=== PATIENT | female | born 1995 | race African-American/Black ===

== ENCOUNTER 2016-11-25 21:56 | Emergency (ER) | payer BC, OTHER ==
[~2016-11-25] VITALS: Ht 170.2 cm; Wt 70.3 kg
[~2016-11-25 21:56] MED LIST: CIPROFLOXACIN500 M2 ORAL; DIPHENHYDRAMINE25 M1 ORAL; DOXYCYCLINE MO100 MG ORAL; HYDROCODON-ACE1 EA15 ORAL; HYDROCORTISON28.4 G5 RC; IBUPROFEN600 MG ORAL; KEFLEX500 MG ORAL; LEVOFLOXACIN750 MG ORAL; NKM; PHENAZOPYRIDIN100 MG ORAL; ZOFRAN4 MG ORAL
[2016-11-25] MEDS ORDERED: Morphine Sulfate 4mg/ml Inj IVP ONE ×2 (22:15→23:15)
[2016-11-25] MEDS ORDERED: Famotidine 20 MG/ 2ML VIAL IVP ONE (22:15)
--- NOTE | 2016-11-25 22:21 | Emergency Room Report ---
History of Present Illness General Chief Complaint: Abdominal Pain Source: Patient Present Illness HPI The patient presents with epigastric pain that began the morning. This been constant and all day. She states it's sharp and burning. It's / and does not radiate to her back. She has history of pancreatitis in the past. This feels similar to that. She's not been vomiting coffee grounds or blood. She also denies any melena or diarrhea. She denies any fevers or chills. She is unable to keep down pain medication at home. Last period was October 29. Normal for her she doesn't believe she is . She denies any dysuria. No cough, sore throat, chest pain, palpitations or dizziness. Denies any joint pain. She did drink 2 glasses of wine yesterday. 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 Last Menstrual Period: 11/04/16 Now: No Reviewed Nursing Documentation: PMH: Agreed, PSxH: Agreed Nursing Documentation-PMH Past Medical History: No History, Except For Hx Cardiac Problems: No Hx Cancer: No Hx Gastrointestinal Problems: Yes - SBO 09/03 Hx Neurological Problems: No Review of Systems All Other Systems: negative except mentioned in HPI Physical Exam Vital Signs Date Time Temp Pulse Resp B/P Pulse Ox O2 Delivery O2 Flow Rate FiO2 11/25/16 22:03 98.2 82 14 104/72 99 Room Air Sp02 EP Interpretation: reviewed, normal General Appearance: well appearing, no apparent distress, GCS 15 Head: normocephalic Eyes: bilateral eye PERRL, bilateral eye anticteric, bilateral eye normal inspection ENT: moist mucus membranes Neck: supple Respiratory: lungs clear, normal breath sounds Cardiovascular #1: regular rate, rhythm Cardiovascular #2: 2+ radial (R) Gastrointestinal: normal inspection, normal bowel sounds, no mass, non- distended, no rebound, tenderness - epigastric Musculoskeletal: back normal, gait/station normal, normal range of motion Neurologic: alert, oriented x3, grossly normal Psychiatric: mood/affect normal Skin: normal inspection, warm/dry Medical Decision Making Diagnostic Impression: Primary Impression: Abdominal pain Qualified Codes: R10.13 - Epigastric pain Additional Impression: Gastritis Qualified Codes: K29.00 - Acute gastritis without bleeding ER Course Patient presents with epigastric pain severe at this time. Differential includes gastritis, GERD, pancreatitis, cholecystitis. Evaluation is urgent with labs. In addition she'll be treated with IV hydration, Zofran, Pepcid and also morphine. Laboratory is unremarkable. The patient required a second dose of morphine. In addition to that she was given a GI cocktail and had relief. The patient vomited one time before discharge and Zofran was given sublingually with good relief. The patient felt well enough to be observed as an outpatient. The patient was stable for outpatient observation and treatment. Laboratory Tests Test 11/25/16 22:11 11/25/16 22:29 Urine Color Yellow Urine Appearance Clear Urine pH 8.0 (4.5-8.0) Urine Specific [place] 1.015 (1.005-1.035) Urine Protein Negative (NEGATIVE) Urine Glucose (UA) Negative (NEGATIVE) Urine Ketones Negative (NEGATIVE) Urine Occult Blood Negative (NEGATIVE) Urine Nitrite Negative (NEGATIVE) Urine Bilirubin Negative (NEGATIVE) Urine Urobilinogen Normal MG/DL (0.0-1.0) Urine Leukocyte Esterase Negative (NEGATIVE) Urine HCG, Qualitative Negative White Blood Count 10.2 K/UL (4.8-10.8) Red Blood Count 5.19 M/UL (4.20-5.40) Hemoglobin 15.2 G/DL (12.0-16.0) Hematocrit 47.3 % (37.0-47.0) H Mean Corpuscular Volume 91 FL (80-99) Mean Corpuscular Hemoglobin 29.4 PG (27.0-31.0) Mean Corpuscular Hemoglobin Concent 32.2 G/DL (32.0-36.0) Red Cell Distribution Width 12.2 % (11.6-14.8) Platelet Count 277 K/UL (150-450) Mean Platelet Volume 8.5 FL (6.5-10.1) Neutrophils (%) (Auto) 67.0 % (45.0-75.0) Lymphocytes (%) (Auto) 26.8 % (20.0-45.0) Monocytes (%) (Auto) 5.2 % (1.0-10.0) Eosinophils (%) (Auto) 0.6 % (0.0-3.0) Basophils (%) (Auto) 0.4 % (0.0-2.0) Sodium Level 138 mEQ/L (135-145) Potassium Level 4.0 mEQ/L (3.4-4.9) Chloride Level 97 mEQ/L (98-107) L Carbon Dioxide Level 27 mEQ/L (20-30) Anion Gap 14 (5-15) Blood Urea Nitrogen 11 mg/dL (7-23) Creatinine 0.9 mg/dL (0.5-0.9) Estimate Glomerular Filtration Rate > 60 mL/min (>60) Glucose Level 90 mg/dL (74-106) Calcium Level 9.4 mg/dL (8.6-10.2) Total Bilirubin 0.2 mg/dL (0.0-1.2) Aspartate Amino Transferase (AST) 16 U/L (5-40) Alanine Aminotransferase (ALT) 10 U/L (3-33) Alkaline Phosphatase 57 U/L (35-104) Total Protein 7.3 g/dL (6.6-8.7) Albumin 4.4 g/dL (3.5-5.2) Globulin 2.9 g/dL Albumin/Globulin Ratio 1.5 (1.0-2.7) Lipase 36 U/L (< 60) Last Vital Signs Date Time Temp Pulse Resp B/P Pulse Ox O2 Delivery O2 Flow Rate FiO2 11/26/16 01:15 98.5 80 15 117/81 100 Room Air Status: improved Disposition: HOME, SELF-CARE Condition: Improved Scripts Ondansetron Odt* (ZOFRAN ODT*) 4 Mg Tab.rapdis 4 MG ORAL Q8H Y for Nausea & Vomiting, #6 TAB 0 Refills Prov: Emmanuel Chamberlain M.D. 11/26/16 Tramadol Hcl* (ULTRAM*) 50 Mg Tablet 50 MG ORAL Q6H Y for For Pain, #12 TAB 0 Refills Prov: Emmanuel Chamberlain M.D. 11/26/16 Famotidine (PEPCID) 20 Mg Tablet 20 MG ORAL DAILY, #30 TAB 0 Refills Prov: Emmanuel Chamberlain M.D. 11/26/16 Emmanuel Chamberlain M.D. Nov 25, 2016 22:21
[2016-11-25 22:41] LABS: BASOPHILS % (AUTO) 0.4 % (0.0-2.0); EOSINOPHILS % (AUTO) 0.6 % (0.0-3.0); LYMPHOCYTES % (AUTO) 26.8 % (20.0-45.0); MEAN CORPUSCULAR HEMOGLOBIN 29.4 PG (27.0-31.0); MEAN CORPUSCULAR HGB CONC 32.2 G/DL (32.0-36.0); MEAN CORPUSCULAR VOLUME 91 FL (80-99); MEAN PLATELET VOLUME 8.5 FL (6.5-10.1); MONOCYTES % (AUTO) 5.2 % (1.0-10.0); PLATELET COUNT 277 K/UL (150-450); RED BLOOD COUNT 5.19 M/UL (4.20-5.40); RED CELL DISTRIBUTION WIDTH 12.2 % (11.6-14.8); WHITE BLOOD COUNT 10.2 K/UL (4.8-10.8)
[2016-11-25 22:45] LABS: APPEARANCE,URINE CLEAR
[2016-11-25 22:49] LABS: KETONES,URINE NEGATIVE (NEGATIVE); LEUKOCYTE ESTERASE ,URINE NEGATIVE (NEGATIVE); NITRITE,URINE NEGATIVE (NEGATIVE); PROTEIN,URINE NEGATIVE (NEGATIVE); UROBILINOGEN,URINE NORMAL MG/DL (0.0-1.0)
[2016-11-25 22:53] VITALS: BP 107/70
[2016-11-25 22:59] LABS: ALANINE AMINOTRANSFERASE 10 U/L (3-33); ALBUMIN/GLOBULIN RATIO 1.5 (1.0-2.7); ANION GAP 14 (5-15); ASPARTATE AMINO TRANSFERASE 16 U/L (5-40); CALCIUM 9.4 mg/dL (8.6-10.2); CARBON DIOXIDE 27 mEQ/L (20-30); CHLORIDE 97 mEQ/L (98-107); CREATININE 0.9 mg/dL (0.5-0.9); GLOMERULAR FILTRATION RATE > 60 mL/min (>60); HEMOLYSIS 5; LIPASE 36 U/L (< 60); SODIUM 138 mEQ/L (135-145); TOTAL PROTEIN 7.3 g/dL (6.6-8.7)
[2016-11-25 23:05] VITALS: BP 119/81
[2016-11-25] MEDS ORDERED: Mylanta II UD 30ml ORAL ONE (23:15)
[2016-11-25] MEDS ORDERED: Lidocaine 2% Visc 15ml soln ORAL ONE (23:15)
[2016-11-26] MEDS ORDERED: PEPCID20 MG ORAL (00:33)
[2016-11-26] MEDS ORDERED: TRAMADOL HCL50 MG ORAL (00:33)
[2016-11-26] MEDS ORDERED: ZOFRAN ODT4 MG ORAL (01:04)
[2016-11-26 01:15] VITALS: BP 117/81
== END 2016-11-26 01:16 | disposition home or self-care (01) ==
LOC: EMR 22:40
DX: K29.00 Acute gastritis without bleeding (principal); F12.10 Cannabis abuse, uncomplicated; Z88.1 Allergy status to other antibiotic agents
CPT/HCPCS: 36415; 80053; 81003; 81025; 83690; 85025; 96374; 96375; 99284; J2270; J2405; S0028

== ENCOUNTER 2017-01-21 12:29 | Emergency (ER) | payer BC ==
[~2017-01-21] VITALS: Ht 170.2 cm; Wt 68.0 kg
[~2017-01-21 12:29] MED LIST changes: +PEPCID20 MG ORAL; +TRAMADOL HCL50 MG ORAL; +ZOFRAN ODT4 MG ORAL
[2017-01-21 12:40] VITALS: BP 101/68
[2017-01-21] MEDS ORDERED: Famotidine 20 MG/ 2ML VIAL IVP ONE (12:45)
[2017-01-21 13:35] LABS: ALANINE AMINOTRANSFERASE 12 U/L (3-33); ALBUMIN/GLOBULIN RATIO 1.5 (1.0-2.7); AMYLASE 120 U/L (10-110); ANION GAP 14 (5-15); ASPARTATE AMINO TRANSFERASE 17 U/L (5-40); CALCIUM 9.2 mg/dL (8.6-10.2); CARBON DIOXIDE 27 mEQ/L (20-30); CHLORIDE 95 mEQ/L (98-107); CREATININE 0.9 mg/dL (0.5-0.9); GLOMERULAR FILTRATION RATE > 60 mL/min (>60); HEMOLYSIS 3; LIPASE 21 U/L (< 60); POTASSIUM 3.6 mEQ/L (3.4-4.9); SODIUM 136 mEQ/L (135-145); TOTAL PROTEIN 6.7 g/dL (6.6-8.7)
[2017-01-21 13:36] LABS: APPEARANCE,URINE CLEAR; BASOPHILS % (AUTO) 0.6 % (0.0-2.0); EOSINOPHILS % (AUTO) 0.4 % (0.0-3.0); KETONES,URINE NEGATIVE (NEGATIVE); LEUKOCYTE ESTERASE ,URINE NEGATIVE (NEGATIVE); LYMPHOCYTES % (AUTO) 17.7 % (20.0-45.0); MEAN CORPUSCULAR HEMOGLOBIN 30.1 PG (27.0-31.0); MEAN CORPUSCULAR HGB CONC 31.6 G/DL (32.0-36.0); MEAN CORPUSCULAR VOLUME 95 FL (80-99); MEAN PLATELET VOLUME 8.9 FL (6.5-10.1); MONOCYTES % (AUTO) 6.3 % (1.0-10.0); NEUTROPHILS % (AUTO) 75.1 % (45.0-75.0); NITRITE,URINE NEGATIVE (NEGATIVE); PH,URINE 8 (4.5-8.0); PLATELET COUNT 237 K/UL (150-450); PROTEIN,URINE NEGATIVE (NEGATIVE); RED BLOOD COUNT 4.67 M/UL (4.20-5.40); RED CELL DISTRIBUTION WIDTH 13.4 % (11.6-14.8); UROBILINOGEN,URINE NORMAL MG/DL (0.0-1.0)
[2017-01-21] MEDS ORDERED: OMEPRAZOLE20 M2 ORAL (13:56)
[2017-01-21 13:59] VITALS: BP 107/69
--- NOTE | 2017-01-21 22:10 | Emergency Room Report ---
History of Present Illness General Chief Complaint: Abdominal Pain Source: Patient (MARY JANSEN) Present Illness HPI The patient is a 21-year-old female presenting for mid abdominal pain which began last night. Patient also admits to nausea, vomiting which occur at the same time. The abdominal pain is described as a 7/10 dull/burning and radiates to the mid chest. The patient states that she has been treated for gerd in the past and this feels similar. The patient denies any other symptoms including fever, chills, constipation, rash, chest pain, shortness of breath, dysuria, hematuria (MARY JANSEN) Allergies: Coded Allergies: VANCOMYCIN (Verified Allergy, Unknown, RASH, SWOLLEN LIPS, 08/14/14) Patient History Past Medical History: see triage record Pertinent Family History: none Last Menstrual Period: 01/02/17 Now: No Reviewed Nursing Documentation: PMH: Agreed, PSxH: Agreed (MARY JANSEN) Nursing Documentation-PMH Past Medical History: No Stated History Hx Cardiac Problems: No Hx Cancer: No Hx Gastrointestinal Problems: Yes - SBO 09/03 Hx Neurological Problems: No (MARY JANSEN) Review of Systems All Other Systems: negative except mentioned in HPI (MARY JANSEN) Physical Exam Vital Signs Date Time Temp Pulse Resp B/P Pulse Ox O2 Delivery O2 Flow Rate FiO2 01/21/17 12:39 98.4 89 18 101/68 100 Room Air Sp02 EP Interpretation: reviewed, normal General Appearance: no apparent distress, alert, GCS 15, non-toxic Head: normocephalic, atraumatic Eyes: bilateral eye PERRL, bilateral eye normal inspection ENT: hearing grossly normal, normal pharynx, no angioedema, normal voice Respiratory: chest non-tender, lungs clear, normal breath sounds, speaking full sentences Gastrointestinal: normal bowel sounds, soft, no mass, no guarding, tenderness - epigastric Rectal: deferred Genitourinary: normal inspection, no CVA tenderness Musculoskeletal: back normal, gait/station normal, normal range of motion, non- tender Neurologic: alert, oriented x3, responsive, motor strength/tone normal, sensory intact, speech normal Psychiatric: judgement/insight normal, memory normal, mood/affect normal, no suicidal/homicidal ideation Skin: normal color, no rash, warm/dry, well hydrated Lymphatic: no adenopathy (MARY JANSEN) Medical Decision Making PA Attestation Dr. Balderrama is my supervising physician. Patient management was discussed with my supervising physician (MARY JANSEN) Diagnostic Impression: Primary Impression: GERD (gastroesophageal reflux disease) ER Course The patient is a 21-year-old female presenting for mid upper abdominal pain Differential diagnoses considered include but not limited to gastritis, GERD, pancreatitis, appendicitis, , UTI PE: Vitals WNL. NAD. Abdomen: Normal appearance. Non distended. No ecchymosis. Normal BS. + TTP over epigastric region only. No McBurney point tenderness. No guarding. No CVA tenderness Labs are all unremarkable The patient is given IV Pepcid and Zofran and is feeling better. Pain has decreased. The patient will be discharged home with a prescription for Omeprazole and needs to followup with PMD. ER precautions are given Laboratory Tests Test 01/21/17 13:00 White Blood Count 9.0 K/UL (4.8-10.8) Red Blood Count 4.67 M/UL (4.20-5.40) Hemoglobin 14.1 G/DL (12.0-16.0) Hematocrit 44.6 % (37.0-47.0) Mean Corpuscular Volume 95 FL (80-99) Mean Corpuscular Hemoglobin 30.1 PG (27.0-31.0) Mean Corpuscular Hemoglobin Concent 31.6 G/DL (32.0-36.0) L Red Cell Distribution Width 13.4 % (11.6-14.8) Platelet Count 237 K/UL (150-450) Mean Platelet Volume 8.9 FL (6.5-10.1) Neutrophils (%) (Auto) 75.1 % (45.0-75.0) H Lymphocytes (%) (Auto) 17.7 % (20.0-45.0) L Monocytes (%) (Auto) 6.3 % (1.0-10.0) Eosinophils (%) (Auto) 0.4 % (0.0-3.0) Basophils (%) (Auto) 0.6 % (0.0-2.0) Urine Color Pale yellow Urine Appearance Clear Urine pH 8 (4.5-8.0) Urine Specific [place] 1.010 (1.005-1.035) Urine Protein Negative (NEGATIVE) Urine Glucose (UA) Negative (NEGATIVE) Urine Ketones Negative (NEGATIVE) Urine Occult Blood Negative (NEGATIVE) Urine Nitrite Negative (NEGATIVE) Urine Bilirubin Negative (NEGATIVE) Urine Urobilinogen Normal MG/DL (0.0-1.0) Urine Leukocyte Esterase Negative (NEGATIVE) Urine HCG, Qualitative Negative Sodium Level 136 mEQ/L (135-145) Potassium Level 3.6 mEQ/L (3.4-4.9) Chloride Level 95 mEQ/L (98-107) L Carbon Dioxide Level 27 mEQ/L (20-30) Anion Gap 14 (5-15) Blood Urea Nitrogen 10 mg/dL (7-23) Creatinine 0.9 mg/dL (0.5-0.9) Estimate Glomerular Filtration Rate > 60 mL/min (>60) Glucose Level 89 mg/dL (74-106) Calcium Level 9.2 mg/dL (8.6-10.2) Total Bilirubin 0.4 mg/dL (0.0-1.2) Aspartate Amino Transferase (AST) 17 U/L (5-40) Alanine Aminotransferase (ALT) 12 U/L (3-33) Alkaline Phosphatase 45 U/L (35-104) Total Protein 6.7 g/dL (6.6-8.7) Albumin 4.1 g/dL (3.5-5.2) Globulin 2.6 g/dL Albumin/Globulin Ratio 1.5 (1.0-2.7) Amylase Level 120 U/L (10-110) H Lipase 21 U/L (< 60) Lab Results Impression CBC, CMP, and urinalysis unremarkable. Negative (MARY JANSEN.Jassi) ER Course I evaluated this patient in the ED at [facility] with my advanced practice provider (Physician Sales Advisor) colleague, who practices under my general supervision. My impressions concur with the advanced practice provider in regards to their obtained history of present illness, physical exam, general management, diagnosis, and disposition. In particular, I agree with PA-obtained interpretation of imaging, rhythm strip. For the evening and overnight shifts, we do not have the benefit of an in-house Radiologist to review xrays so our interpretation may be limited. Patients are to be discharged only with normal vital signs (or if we discussed a particular exception), a plan for follow-up care, and understand to return to the ED for worsening symptoms. Please see midlevel healthcare providers note for further details. (CAMILA BALDERRAMA M.D.) Last Vital Signs Date Time Temp Pulse Resp B/P Pulse Ox O2 Delivery O2 Flow Rate FiO2 01/21/17 13:59 79 20 107/69 99 Room Air 01/21/17 12:39 98.4 Status: improved (MARY JANSEN) Disposition: HOME, SELF-CARE Condition: Improved Scripts Omeprazole (OMEPRAZOLE) 20 Mg Capsule. 20 MG ORAL DAILY, #30 CAP Prov: MARY JANSEN 01/21/17 Patient Instructions: Food Choices for Gastroesophageal Reflux Disease, Adult, Gastroesophageal Reflux Disease, Adult Additional Instructions: I discussed my findings with the patient. All questions and concerns have been answered. Treatment and medication compliance have been addressed. I advised the patient that they need to follow up with PMD in 3-5 days. Return to ED if symptoms worsen, new symptoms arise, or if needed for any reason. Patient verbalized understanding of discharge instructions. MARY JANSEN Jan 21, 2017 22:10 CAMILA BALDERRAMA M.D. Jan 25, 2017 14:14
== END 2017-01-21 14:05 | disposition home or self-care (01) ==
LOC: EMR 13:11
DX: K21.9 Gastro-esophageal reflux disease without esophagitis (principal); Z88.1 Allergy status to other antibiotic agents
CPT/HCPCS: 36415; 80053; 81003; 81025; 82150; 83690; 85025; 96374; 96375; 99284; J2405; S0028

== ENCOUNTER 2017-05-30 07:30 | Emergency (ER) | payer BC ==
[~2017-05-30] VITALS: Ht 170.2 cm; Wt 70.3 kg
[~2017-05-30 07:30] MED LIST changes: +OMEPRAZOLE20 M2 ORAL
[2017-05-30 07:35] VITALS: BP 111/74
[2017-05-30] MEDS ORDERED: IBUPROFEN600 M1 PO (08:23)
[2017-05-30] MEDS ORDERED: CYCLOBENZAPRINE10 MG ORAL (08:23)
[2017-05-30 09:21] VITALS: BP 113/73
--- NOTE | 2017-05-31 07:35 | Emergency Room Report ---
History of Present Illness General Chief Complaint: Pain Source: Patient, Medical Record Present Illness HPI Patient is a 22 to female who presented after increased left-sided neck and shoulder pain. She describes this as a tightness to the left side of her neck and left shoulder. The patient awoke from sleeping with this pain. She denies any prior fever. She denies recent trauma. She denied any headache. She had not had any numbness or weakness to her extremities.The patient stated that pain was worse with movement of her head to the left. Allergies: Coded Allergies: VANCOMYCIN (Verified Allergy, Unknown, RASH, SWOLLEN LIPS, 08/14/14) Patient History Past Medical History: see triage record Last Menstrual Period: 05/02/17 Now: No Reviewed Nursing Documentation: PMH: Agreed, PSxH: Agreed Nursing Documentation-PMH Past Medical History: No History, Except For Hx Cardiac Problems: No Hx Cancer: No Hx Gastrointestinal Problems: Yes - SBO 09/03 Hx Neurological Problems: No Review of Systems All Other Systems: negative except mentioned in HPI Physical Exam Vital Signs Date Time Temp Pulse Resp B/P Pulse Ox O2 Delivery O2 Flow Rate FiO2 05/30/17 07:35 97.9 81 18 111/74 100 Room Air General Appearance: well appearing, no apparent distress, alert, GCS 15 Head: normocephalic, atraumatic ENT: hearing grossly normal, normal voice Neck: supple, limited range of motion - normal flexion and extension, slight tenderness to left trapezius Respiratory: no respiratory distress, speaking full sentences Musculoskeletal: no calf tenderness Neurologic: normal gait Psychiatric: mood/affect normal Skin: no rash Medical Decision Making Diagnostic Impression: Primary Impression: Cervical muscle strain ER Course Patient presented for neck pain. Differential diagnosis included vertebral artery dissection, myocardial infarction, cervical fracture, arthritis, spondylolithises. Patient's benign exam and does not appear to require any further imaging or laboratory testing at this time. 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 Patient given prescription for nsaid and muscle relaxants. Urine test was negative. Not appear to have meningitis Last Vital Signs Date Time Temp Pulse Resp B/P Pulse Ox O2 Delivery O2 Flow Rate FiO2 05/30/17 09:21 80 16 113/73 Room Air 05/30/17 09:15 98.2 05/30/17 07:35 100 Status: improved Disposition: HOME, SELF-CARE Condition: Stable Scripts Cyclobenzaprine Hcl* (FLEXERIL*) 10 Mg Tablet 10 MG ORAL TID Y for Muscle Spasm, #20 TAB Prov: Cortes Brown 05/30/17 Ibuprofen (Ibuprofen) 600 Mg Tablet 600 MG PO q8, #30 TAB Prov: Cortes Brown 05/30/17 Patient Instructions: Cervical Sprain Cortes Brown May 31, 2017 07:35
== END 2017-05-30 09:21 | disposition home or self-care (01) ==
LOC: EMR 07:54
DX: S16.1XXA Strain of muscle, fascia and tendon at neck level, initial encounter (principal); X58.XXXA Exposure to other specified factors, initial encounter; Y92.89 Other specified places as the place of occurrence of the external cause
CPT/HCPCS: 81025; 99284

== ENCOUNTER 2017-10-07 20:12 | Emergency (ER) | payer BC ==
[~2017-10-07] VITALS: Ht 170.2 cm; Wt 67.1 kg
[~2017-10-07 20:12] MED LIST changes: +CYCLOBENZAPRINE10 MG ORAL; +IBUPROFEN600 M1 PO
[2017-10-07] MEDS ORDERED: KEFLEX500 MG ORAL (21:41)
--- NOTE | 2017-10-07 21:41 | Emergency Room Report ---
History of Present Illness General Chief Complaint: Pain Source: Patient Present Illness HPI Patient is a 22 female presented after increased left-sided breast pain after a recent breast biopsy. The patient probably had prior history of nodular breast disease. She had procedure approximately 4 days ago she denied any fever. She noticed increased bruising to the inferior aspect of her breast. She denied any other locations of pain. She denied prior bleeding . Allergies: Coded Allergies: VANCOMYCIN (Verified Allergy, Unknown, RASH, SWOLLEN LIPS, 08/14/14) Patient History Past Medical History: see triage record Last Menstrual Period: Sep Reviewed Nursing Documentation: PMH: Agreed, PSxH: Agreed Nursing Documentation-PMH Hx Cardiac Problems: No Hx Cancer: No Hx Gastrointestinal Problems: Yes - SBO 09/03 Hx Neurological Problems: No Review of Systems All Other Systems: negative except mentioned in HPI Physical Exam Vital Signs Date Time Temp Pulse Resp B/P (MAP) Pulse Ox O2 Delivery O2 Flow Rate FiO2 10/07/17 20:28 97.9 67 18 112/79 100 Room Air General Appearance: well appearing, no apparent distress, alert, GCS 15 Head: normocephalic, atraumatic ENT: hearing grossly normal, normal voice Neck: full range of motion, supple Respiratory: no respiratory distress, speaking full sentences Musculoskeletal: normal inspection, back normal, digits/nails normal, no calf tenderness Neurologic: normal inspection, alert, oriented x3, responsive, normal gait Psychiatric: mood/affect normal Skin: other - left breast nodular lesion, bruising to inferior aspect of breast , no nipple retraction, incision site C/D/I Medical Decision Making Diagnostic Impression: Primary Impression: Post-operative pain ER Course Patient presented for pain after breast needle biopsy. Differential diagnosis included was not limited to hematoma, cellulitis, foreign body among others. Patient's benign exam and does not appear to require any further imaging or laboratory testing at this time. The patient does not appear to have any definite infection however given the patient's the breast tenderness we will give her prescription for Keflex. Patient was advised followup for recheck with her surgeon in the next one to 2 days. Last Vital Signs Date Time Temp Pulse Resp B/P (MAP) Pulse Ox O2 Delivery O2 Flow Rate FiO2 10/07/17 20:28 97.9 67 18 112/79 100 Room Air Status: improved Disposition: HOME, SELF-CARE Condition: Stable KevinCortes Oct 07, 2017 21:41
[2017-10-07 21:44] VITALS: BP 112/79
== END 2017-10-07 22:00 | disposition home or self-care (01) ==
LOC: EMR 22:00
DX: G89.18 Other acute postprocedural pain (principal); N64.4 Mastodynia
CPT/HCPCS: 99283

== ENCOUNTER 2018-02-03 09:04 | Emergency (ER) | payer BC ==
[~2018-02-03] VITALS: Ht 170.2 cm; Wt 66.2 kg
[2018-02-03 09:08] VITALS: BP 116/82
[2018-02-03] MEDS ORDERED: NITROFURANTOIN100 M2 ORAL (09:16)
[2018-02-03 09:23] VITALS: BP 116/82
--- NOTE | 2018-02-03 09:25 | Emergency Room Report ---
History of Present Illness General Chief Complaint: Female Urogenital Problems Source: Patient Present Illness HPI 22YOF with 2 days dysuria. No polyuria, discharge, flank pain, fever/chills. Previously used to have frequent UTIs. Sexually active with 1 partner - doesnt regularly urinate after sex. Allergies: Coded Allergies: VANCOMYCIN (Verified Allergy, Unknown, RASH, SWOLLEN LIPS, 08/14/14) Patient History Past Medical History: none Past Surgical History: none Pertinent Family History: none Social History: Denies: smoking, alcohol use, drug use Last Menstrual Period: 01/27/18 Now: No Immunizations: UTD Reviewed Nursing Documentation: PMH: Agreed; PSxH: Agreed Nursing Documentation-PMH Past Medical History: No Stated History Hx Cardiac Problems: No Hx Cancer: No Hx Gastrointestinal Problems: Yes - SBO 09/03 Hx Neurological Problems: No Review of Systems All Other Systems: negative except mentioned in HPI Physical Exam Vital Signs Date Time Temp Pulse Resp B/P (MAP) Pulse Ox O2 Delivery O2 Flow Rate FiO2 02/03/18 09:08 98.3 72 18 116/82 98 Room Air 98.3 Sp02 EP Interpretation: reviewed, normal General Appearance: normal inspection, well appearing, no apparent distress, alert, GCS 15, non-toxic Head: normocephalic, atraumatic Eyes: bilateral eye PERRL, bilateral eye EOMI ENT: normal ENT inspection, hearing grossly normal, normal pharynx, no angioedema, normal voice, TMs + canals normal, uvula midline, moist mucus membranes Neck: normal inspection, full range of motion, supple, thyroid normal, no meningismus, no bony tend Respiratory: normal inspection, lungs clear, normal breath sounds, no rhonchi, no respiratory distress, no retraction, no accessory muscle use, no wheezing, speaking full sentences Cardiovascular #1: regular rate, rhythm, no edema, no JVD, normal capillary refill Gastrointestinal: normal inspection, normal bowel sounds, non tender, soft, no mass, no peritonitis, non-distended, no guarding, no hernia, no pulsatile mass Genitourinary: no CVA tenderness Musculoskeletal: normal inspection, back normal, normal range of motion, no calf tenderness, pelvis stable, Mekhi's Sign negative Neurologic: normal inspection, alert, oriented x3, responsive, collar tacker III-XII nml as tested, motor strength/tone normal, cerebellar normal, normal gait, speech normal Psychiatric: normal inspection, judgement/insight normal, mood/affect normal, no suicidal/homicidal ideation, no delusions Skin: normal inspection, normal color, no rash Lymphatic: normal inspection, no adenopathy Medical Decision Making Diagnostic Impression: Primary Impression: Dysuria ER Course VSS, afebrile Well appearing HPI c/w possible UTI Will tx empirically with Macrobid Urine Cx in progress ER course: Patient has remained stable during ED stay. Disposition: Patient is to be discharged to home. Prescriptions given are macrobid Patient is instructed to follow up with their primary care doctor within 5 days. Strict return precautions discussed with patient such as fever, chills, worsening/severe pain, nausea, vomiting, which may indicate severe illness. Patient verbalizes understanding and agrees with plan. Please note that this Emergency Department Report was dictated using [employer] software, occasionally this can lead to erroneous entry secondary to interpretation by the dictation equipment Last Vital Signs Date Time Temp Pulse Resp B/P (MAP) Pulse Ox O2 Delivery O2 Flow Rate FiO2 02/03/18 09:08 98.3 72 18 116/82 98 Room Air 98.2 Status: improved Disposition: HOME, SELF-CARE Condition: Improved Scripts Nitrofurantoin Monohyd/M-Cryst* (MACROBID 100 MG*) 100 Mg Capsule 100 MG ORAL EVERY 12 HOURS for 7 Days, #14 CAP Prov: CAMILA BALDERRAMA M.D. 02/03/18 Patient Instructions: Urinary Tract Infection CAMILA BALDERRAMA M.D. Feb 03, 2018 09:25
== END 2018-02-03 09:23 | disposition home or self-care (01) ==
LOC: EMR 09:15
DX: R30.0 Dysuria (principal); Z88.8 Allergy status to other drugs, medicaments and biological substances
CPT/HCPCS: 87086; 99283

== ENCOUNTER 2019-05-13 11:20 | Emergency (ER) | payer BC ==
[~2019-05-13] VITALS: Ht 170.2 cm; Wt 76.7 kg
[~2019-05-13 11:20] MED LIST changes: +NITROFURANTOIN100 M2 ORAL
--- NOTE | 2019-05-13 11:32 | NUR ---
ED Nurse Note: 3 months pt walked in to ED due to intermittent cramping pain since Sun. per pt, had one episode of spotting on Sun but not anymore. AAO x4. respirations even and non-labored noted. skin warm to touch. no open wound. will wait for the further order.
--- NOTE | 2019-05-13 11:47 | NUR ---
ED Nurse Note: UA SENT TO LAB
--- NOTE | 2019-05-13 12:02 | NUR ---
ED Nurse Note: blood drawn and sent to lab
[2019-05-13 12:10] LABS: BASOPHILS % (AUTO) 0.4 % (0.0-2.0); EOSINOPHILS % (AUTO) 0.3 % (0.0-3.0); HEMATOCRIT 41.5 % (37.0-47.0); HEMOGLOBIN 13.6 G/DL (12.0-16.0); LYMPHOCYTES % (AUTO) 15.6 % (20.0-45.0); MEAN CORPUSCULAR VOLUME 92 FL (80-99); MONOCYTES % (AUTO) 5.4 % (1.0-10.0); NEUTROPHILS % (AUTO) 78.2 % (45.0-75.0); PLATELET COUNT 247 K/UL (150-450); RED BLOOD COUNT 4.51 M/UL (4.20-5.40); RED CELL DISTRIBUTION WIDTH 11.8 % (11.6-14.8); WHITE BLOOD COUNT 11.3 K/UL (4.8-10.8)
[2019-05-13 12:20] LABS: ANION GAP 11 mmol/L (5-15); BLOOD UREA NITROGEN 6 mg/dL (7-18); CALCIUM 9.3 MG/DL (8.5-10.1); CARBON DIOXIDE 23 MMOL/L (21-32); CHLORIDE 102 MMOL/L (98-107); CREATININE 0.7 MG/DL (0.55-1.30); POTASSIUM 4.1 MMOL/L (3.5-5.1); SODIUM 135 MMOL/L (136-145)
[2019-05-13 12:25] LABS: ALANINE AMINOTRANSFERASE 13 U/L (12-78); ALBUMIN 3.7 G/DL (3.4-5.0); ALBUMIN/GLOBULIN RATIO 1.1 (1.0-2.7); ALKALINE PHOSPHATASE 45 U/L (46-116); ASPARTATE AMINO TRANSFERASE 15 U/L (15-37); BILIRUBIN,TOTAL 0.2 MG/DL (0.2-1.0)
--- NOTE | 2019-05-13 12:28 | NUR ---
ED Nurse Note: patient taken down to US in stable condition
--- NOTE | 2019-05-13 13:25 | NUR ---
ED Nurse Note: patient came back from US in stable condition
--- NOTE | 2019-05-13 13:31 | Diagnostic Imaging Report ---
Indication: Pelvic pain Technique: Grayscale and duplex Doppler imaging of the pelvis performed utilizing a transabdominal scan and endovaginal scan. Comparison: None Findings: Single living IUP demonstrated at 12 weeks one day gestational age. heart tones demonstrated. The ovaries are demonstrated and show dopplerable blood flow. Cervix is closed. Amniotic fluid appears appropriate for gestational age. Right ovary measures 3.5 x 2.1 x 2.9 cm. The left ovary is seen only on transabdominal scanning and measures 3.6 x 1.9 x 2.3 cm. IMPRESSION: Single living IUP 12 weeks one day gestational age.
--- NOTE | 2019-05-13 13:44 | Emergency Room Report ---
History of Present Illness General Chief Complaint: Complications Source: Medical Record Present Illness HPI 24-year-old female who is G1, 3 months here complaining of 2 days of vaginal spotting and suprapubic cramping after lifting heavy objects at work. Patient is rating the pain 5 out of 10 without radiation denying any vaginal clotting and reports that she only had one episode of vaginal spotting 2 days ago. Denies urinary symptoms, reconceive urination, dysuria. Last saw her [facility] [employer] [facility] [facility] 1 week ago and had normal labs and ultrasound. Patient is compliant with taking her vitamins. Sitting comfortably denying any chest pain, shortness of breath, palpitation, nausea vomiting, syncope. Denies being sexually active the past month. Denies vaginal discharge. Has not taken medication for symptoms. Allergies: Coded Allergies: VANCOMYCIN (Verified Allergy, Unknown, RASH, SWOLLEN LIPS, 08/14/14) Patient History Past Medical History: see triage record Past Surgical History: unable to obtain Pertinent Family History: none Last Menstrual Period: 02/17/19 Now: Yes : 1 Immunizations: UTD Reviewed Nursing Documentation: PMH: Agreed; PSxH: Agreed Nursing Documentation-PMH Past Medical History: No History, Except For Hx Cardiac Problems: No Hx Cancer: No Hx Gastrointestinal Problems: Yes - SBO 09/03 Hx Neurological Problems: No Review of Systems All Other Systems: negative except mentioned in HPI Physical Exam Vital Signs Date Time Temp Pulse Resp B/P (MAP) Pulse Ox O2 Delivery O2 Flow Rate FiO2 05/13/19 11:32 97.7 84 18 118/86 (97) 100 Room Air Sp02 EP Interpretation: reviewed, normal General Appearance: normal inspection, well appearing, no apparent distress, alert, GCS 15 Head: normocephalic, atraumatic Eyes: bilateral eye normal inspection, bilateral eye PERRL ENT: normal ENT inspection, hearing grossly normal, normal pharynx Neck: normal inspection, full range of motion, supple, thyroid normal Respiratory: normal inspection, chest non-tender, lungs clear, no rhonchi, no wheezing Cardiovascular #1: normal inspection, normal peripheral pulses, regular rate, rhythm, no edema, no gallop, no murmur Gastrointestinal: normal inspection, non tender, soft Rectal: deferred Genitourinary: no CVA tenderness Musculoskeletal: normal inspection, back normal, digits/nails normal Neurologic: normal inspection, alert, oriented x3, responsive Psychiatric: normal inspection, judgement/insight normal Skin: no rash, palpation normal Lymphatic: normal inspection, no adenopathy Medical Decision Making PA Attestation All my diagnosis and treatment plans were reviewed ad discussed with my supervising physician Dr. Brown Diagnostic Impression: Primary Impression: Abdominal pain during ER Course 24-year-old female who is G1, 3 months here complaining of 2 days of vaginal spotting and suprapubic cramping after lifting heavy objects at work. Patient is rating the pain 5 out of 10 without radiation denying any vaginal clotting and reports that she only had one episode of vaginal spotting 2 days ago. Denies urinary symptoms, reconceive urination, dysuria. Last saw her [employer] 1 week ago and had normal labs and ultrasound. Patient is compliant with taking her vitamins. Sitting comfortably denying any chest pain, shortness of breath, palpitation, nausea vomiting, syncope. Denies being sexually active the past month. Denies vaginal discharge. Has not taken medication for symptoms. Ddx considered but are not limited to: Ectopic , threatened , complicated abdominal pain during , uncomplicated abdominal pain during Vital signs: are WNL, pt. is afebrile H&PE are most consistent with: Uncomplicated abdominal pain during ORDERS: OB ultrasound, CBC, CMP, type and screen, UA, beta hCG ED INTERVENTIONS: None required at this time. DISCHARGE: At this time pt. is stable for d/c to home. Will provide printed patient care instructions, and any necessary prescriptions. Care plan and follow up instructions have been discussed with the patient prior to discharge. Follow-up with your [employer] [employer] in 48 hours for repeat beta-hCG and will be ultrasound avoid lifting heavy objects take medication as directed CT/MRI/US Diagnostic Results CT/MRI/US Diagnostic Results : Imaging Test Ordered: OB ultrasound Impression No subchorionic hemorrhage noted heart rate is 176 patient is 3 months no abnormalities noted Last Vital Signs Date Time Temp Pulse Resp B/P (MAP) Pulse Ox O2 Delivery O2 Flow Rate FiO2 05/13/19 11:32 97.7 84 18 118/86 (97) 100 Room Air Disposition: HOME, SELF-CARE Condition: Stable Scripts Acetaminophen* (ACETAMINOPHEN 325MG TABLET*) 325 Mg Tablet 325 MG ORAL Q6H PRN for For Pain, #30 TAB Prov: Evan Bryson 05/13/19 Referrals: NOT CHOSEN IPA/,REFERRING (PCP) Patient Instructions: Abdominal Pain During , [id number] Additional Instructions: Follow-up with your [facility] [employer] in 48 hours for repeat of blood levels of hormone as well as OB ultrasound. Avoid lifting heavy objects. You can take low doses of Tylenol for pain as needed. Continue taking your vitamins. If increased vaginal bleeding and pain return to the emergency room. Evan Bryson May 13, 2019 13:44
[2019-05-13] MEDS ORDERED: ACETAMINOPHEN325 M1 ORAL (13:45)
[2019-05-13 13:54] VITALS: BP 118/86
--- NOTE | 2019-05-13 13:54 | NUR ---
ER DISCHARGE NOTE: Patient is cleared to be discharged per ER KATHY BILL, pt is aox4, on room air, with stable vital signs. pt was given dc and prescription instructions, pt was able to verbalize understanding, pt id band removed without complications. pt is able to ambulate with steady gait. pt took all belongings.
== END 2019-05-13 13:54 | disposition home or self-care (01) ==
LOC: EMR 12:15
DX: O26.91 Pregnancy related conditions, unspecified, first trimester (principal); R10.9 Unspecified abdominal pain; Z3A.12 12 weeks gestation of pregnancy; Z88.8 Allergy status to other drugs, medicaments and biological substances
CPT/HCPCS: 36415; 76801; 80053; 84702; 85025; 86850; 86900; 86901; 99284